=== PATIENT | male | born 1955 | race Caucasian/White ===

== ENCOUNTER 2018-06-10 03:01 | Emergency (ER) | payer OTHER, SELFPAY ==
[2018-06-10 03:03] VITALS: BP 145/77; PULSE 74; RESP 16; TEMP 36.7; O2SAT 94; BMI 33.0
--- NOTE | 2018-06-10 03:21 | RAD_ITS ---
STUDY: X-RAY - LEFT FOOT CLINICAL: Male, 63 years old. Left-sided ankle pain. TECHNIQUE: 3 view(s) of the foot. COMPARISON: Radiographs of the left ankle dated June 10, 2018. FINDINGS: There are small calcaneal spurs. The tarsal bones are within normal limits. There appear to be erosive changes of the cuneiforms. Normal metatarsi. There is degenerative arthrosis of the metatarsophalangeal joint of the hallux . Normal tibial and fibular sesamoid bones. Normal interphalangeal joint of the great toe. Normal phalanges of the great toe. Normal second through fifth metatarsophalangeal joints. Normal interphalangeal joints and phalanges of the lesser toes. There is mild soft tissue swelling. RAD/Foot min 3 Views IMPRESSION: 1. Calcaneal spurs. 2. 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 Electronically Signed: Laina Ulloa MD at 3:58 EST , Service support ,
[2018-06-10 03:23] VITALS: BP 162/91; PULSE 72; RESP 16; O2SAT 98
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
--- NOTE | 2018-06-10 03:28 | RAD_ITS ---
STUDY: X-RAY - LEFT ANKLE REASON FOR EXAM: Male, 63 years old. Left-sided foot and ankle pain. TECHNIQUE: 3 view(s) of the ankle. COMPARISON: None. FINDINGS: Normal visualized distal tibia and fibula. Normal medial and lateral malleoli. Normal tibiotalar articulation and ankle mortise. Patient has a talar beak. There is a posterior calcaneal enthesophyte and plantar calcaneal spur. Intertarsal articulations are within normal limits. The visualized metatarsals have a normal appearance. There is mild soft tissue swelling. RAD/Ankle min 3 Views IMPRESSION: 1. Calcaneal spurs. 2. Talar beak. 3. Soft tissue swelling. Electronically Signed: Laina Ulloa MD at 3:54 EST , Service support ,
--- NOTE | 2018-06-10 04:58 | ED.DEP ---
ED Disposition - Plan for ED Patient: Disposition: Home or Assisted Living Chief Complaint: Lower Extremity Injury Instructions: ED Degenerative Joint Disease, ED Contusion Foot Referrals: Care Physician,No Primary [Primary Care Provider] - Doctor,Your [STAFF PHYSICIAN] - 3-5 Days if not improving Additional Instructions: X-ray showed arthritic changes in your foot but no signs of fractures. It is possible that you injured your foot and do not remember it. Please use Tylenol as needed for pain. Rest and elevate the foot as much as possible. Follow-up with your doctor in 3-5 days if you continue to have pain. If at any time you develop swelling or pain moving up your calf or in your thigh, have shortness of breath, chest pain, fever, dizziness or lightheadedness, or any other new concerning symptoms, return immediately to the emergency department for another evaluation.
[2018-06-10 05:11] VITALS: RESP 16
== END 2018-06-10 05:12 | disposition home or self-care (01) ==
PROVIDERS: Emergency Provider Emergency Medicine
DX: S90.32XA Contusion of left foot, initial encounter (principal); X58.XXXA Exposure to other specified factors, initial encounter; Y93.9 Activity, unspecified; Y92.9 Unspecified place or not applicable; Y99.9 Unspecified external cause status; M19.072 Primary osteoarthritis, left ankle and foot; E11.40 Type 2 diabetes mellitus with diabetic neuropathy, unspecified; E11.51 Type 2 diabetes mellitus with diabetic peripheral angiopathy without gangrene; R41.3 Other amnesia; Z79.4 Long term (current) use of insulin; Z79.899 Other long term (current) drug therapy
CPT/HCPCS: 73610; 73630; 99282